=== PATIENT | female | born 1940 | race Caucasian/White ===

== ENCOUNTER 2018-05-12 23:49 | Observation (INO) | payer MEDICARE ==
[2018-05-13 02:56] LABS: Bilirubin Negative (Negative); Blood, Urine Negative (Negative); Clarity CLEAR (Clear); Glucose, Urine (Dipstick) Negative (Negative); Leukocyte Small (Negative); Nitrite Negative (Negative); Protein, Urine (Dipstick) Negative (Neg-Trace); Specific Gravity, Urine 1.025 (1.002-1.036)
[2018-05-13 02:58] LABS: Bacteria/HPF 2+ HPF (None Seen); Pathc Cast-AUWi Flag 0.14 (0-2.49); Squamous Epithelial None Seen HPF (0-3)
[2018-05-13 03:06] LABS: Hyaline Casts/LPF NONE SEEN LPF (0-3 Hyaline); RBC/HPF 0-3 HPF (0-3)
[2018-05-13] MEDS ORDERED: Benzonatate 100 MG CAP PO PRN (07:44)
[2018-05-13] MEDS ORDERED: Bisacodyl 5 MG TAB PO PRN (07:44)
[2018-05-13] MEDS ORDERED: Ondansetron PF 4 MG/2 ML Vial IVP PRN ×2 (07:44)
[2018-05-13] MEDS ORDERED: Diabetic Tussin 200 MG/10 ML UDCUP PO PRN (07:44)
[2018-05-13] MEDS ORDERED: Nitroglycerin 0.4 MG TAB (25 Tab Bottle) SL PRN (07:44)
[2018-05-13] MEDS ORDERED: cloNIDine 0.1 MG TAB PO PRN (07:44)
[2018-05-13] MEDS ORDERED: hydrALAZINE 20 MG/ML VIAL SLOW IVP PRN (07:44)
[2018-05-13] MEDS ORDERED: Senokot S 8.6-50 MG TAB PO PRN (07:44)
[2018-05-13] MEDS ORDERED: Acetaminophen 325 MG TAB PO PRN (07:44)
[2018-05-13] MEDS ORDERED: Enoxaparin Sodium 40 MG/0.4 ML SYRINGE ONE (09:03)
[2018-05-13] MEDS ORDERED: Levofloxacin 500 mg/D5W 100 ml Premix Bag ONE (09:03)
[2018-05-13] MEDS ORDERED: Dextrose 5% in Water 1,000 ML IV PRN (10:52)
[2018-05-13] MEDS ORDERED: Dextrose 50% Abboject 50 ML SYRINGE SLOW IVP PRN (10:52)
[2018-05-13] MEDS ORDERED: HumaLOG 300 UNITS/3 ML VIAL SC PRN ×2 (10:52)
[2018-05-13] MEDS ORDERED: HumaLOG 300 UNITS/3 ML VIAL ONE ×2 (10:55→11:03)
--- NOTE | 2018-05-13 12:28 | MRI ---
MRI BRAIN WITH AND WITHOUT IV CONTRAST: Date: 05/13/18 HISTORY: Stroke-like symptoms. TIA. COMPARISON: None available. FINDINGS: Scattered patchy areas of increased FLAIR and T2-weighted signal intensity are seen throughout the pe riventricular and subcortical white matter, with increased FLAIR and T2-weighted signal intensity see n in the liam bilaterally. Findings are overall nonspecific, but likely reflective of chronic small v essel ischemic changes. There is no evidence of an acute infarction. No abnormal areas are seen after the administration of intravenous contrast. Septum pellucidum and th ird ventricle are in the midline. The ventricular system is normal in size, shape, and position. The right vertebral artery flow-void is dominant compared to the left, but there are otherwise approp riate flow-voids demonstrated at the base of the brain. Minimal mucosal thickening is seen in the ethmoidal air cells bilaterally. The orbits and skull base have a normal MRI appearance. IMPRESSION: 1. No acute intracranial abnormality is demonstrated. 2. Chronic small vessel ischemic changes. POS: SHY
[2018-05-13 12:39] LABS: Cardiac Risk 3.6 (Less than 4.5)
--- NOTE | 2018-05-13 12:42 | HP ---
PRIMARY CARE PHYSICIAN: Henny George. CHIEF COMPLAINT: Imbalance. HISTORY OF PRESENTING ILLNESS: Ms. Govea is a very pleasant 77-year-old female with past medical history of diabetes, hypertension, and dyslipidemia, who presented to the emergency room in [place] with the above-mentioned complaint. History is mainly obtained by the patient herself and electronic medical records have been reviewed. The patient called EMS last night because she was feeling "blah" and noticed that her BP was high at home. She had one episode of vomiting after she took her blood pressure medications yesterday evening. She noticed her blood pressure was 192/82. She was also complaining of worsening vertigo since last night, which she describes as more of imbalance feeling than dizziness. It continuously got worsened with high blood pressure. She got worried, so she presented to the emergency room. She denies any paresthesias. She denies any muscle weakness. No vision changes. No difficulty swallowing or walking. No difficulty with her speech. She has no complaints with loss of hearing or tinnitus or headache. Upon presentation to the emergency room, she was hemodynamically stable with a blood pressure of 137/68, saturating 97% on room air. She underwent general examination including a CT scan of the head, which was unremarkable. Her EKG as well as cardiac enzymes were within normal limit as well. She is now being admitted to rule out posterior cerebral circulation stroke. Noticeably, she was found to have a urinalysis consistent with the UTI. The patient does endorse dysuria and increased urinary frequency. PAST MEDICAL HISTORY: 1. Diabetes mellitus. 2. Dyslipidemia. 3. Hypertension. PAST SURGICAL HISTORY: Left knee replacement. PSYCHIATRIC HISTORY: No anxiety. No depression. SOCIAL HISTORY: She lives at home with family. She is fairly independent with her ADLs and IADLs. No history of drug, tobacco, or alcohol abuse. ALLERGIES: NO KNOWN MEDICATION ALLERGIES. FAMILY HISTORY: No significant family history of any coronary artery disease or stroke. HOME MEDICATIONS: Further need to be confirmed, but she reports that she takes lisinopril, simvastatin, metformin, and Myrbetriq. CODE STATUS: Full code discussed with the patient. REVIEW OF SYSTEMS: A 12-point review of systems is done. It is negative except for those mentioned in the history and physical. LABORATORY DATA: Her CBC is unremarkable. Her serum chemistries show BUN of 27; creatinine at 1.12, baseline being 1.0. Her cardiac enzymes are within normal limits. Urinalysis showed +2 bacteria, small leukocyte esterase and wbc's. CT scan of the brain by my review has no evidence to suggest acute infarction, mass, or hemorrhage. PHYSICAL EXAMINATION: VITAL SIGNS: Upon presentation, blood pressure 137/68, pulse of 65, respirations 18, saturating 97% on room air, temperature 97.5. GENERAL: No acute distress. Awake, alert, and oriented x3. Lying comfortably in bed. Appears her stated age. Family is at bedside. HEENT: Mucous membrane is moist and pink. No oropharyngeal exudate or erythema. Head is normocephalic, atraumatic. Pupils are equal and reactive to light and accommodation. Extraocular movement intact. NECK: Supple without any lymphadenopathy, JVD, or bruit. CHEST: Clear to auscultation bilaterally without any wheezing, rales, or rhonchi. HEART: Rate and rhythm is regular without any murmurs, rubs, or gallops. ABDOMEN: Soft, nontender, nondistended with positive bowel sounds. She has some suprapubic tenderness. EXTREMITIES: Free of any cyanosis, clubbing, or edema. NEUROLOGIC: Nonfocal. SKIN: Free of any rashes or bruises. Feels warm and dry to touch. PSYCHIATRIC: Normal affect. IMPRESSION AND PLAN: 1. Balance problems with imbalance and dizziness. The patient will be admitted under observation status to rule out posterior cerebral circulation stroke. MRI and carotid Doppler ultrasound will be done. She also has evidence to suggest dehydration and urinary tract infection, for which she will be treated with antibiotic and IV fluids. 2. Urinary tract infection. She will be started on levofloxacin and we will send the urine for culture. 3. Acute renal insufficiency. We will start her on gentle IV fluids and monitor her renal function and avoid any nephrotoxic medications. We will hold her metformin for now. 4. Diabetes mellitus. Hold her metformin and start her on insulin sliding scale, and monitor Accu-Cheks a.c. and h.s. 5. Hypertension, currently under better control. We will restart her home medications once confirmed and meanwhile, we will use p.r.n. antihypertensives. 6. Dyslipidemia. Restart home medication and check lipid panel as well. 7. Code status. Full code discussed with the patient in detail. 8. Deep venous thrombosis and gastrointestinal prophylaxis. DISPOSITION: The patient is currently being admitted under observation status to rule out stroke. Further management will depend upon her clinical course. Job ID: [id number]
[2018-05-13] MEDS ORDERED: cloNIDine 0.1 MG TAB ONE (15:47)
--- NOTE | 2018-05-13 17:01 | ULT ---
CAROTID ULTRASOUND: HISTORY: TIAs. TECHNIQUE: Multiple longitudinal and transverse images of the carotid arteries obtained using a Multi-Hertz line ar array transducer. FINDINGS: Real-time, color-flow, and spectral wave-form Doppler analysis demonstrates the right and left common carotid, internal carotid, and external carotid arteries to be patent. Antegrade flow is seen in carmen th vertebral arteries. No significant evidence of carotid disease is seen. IMPRESSION: Normal carotid ultrasound. POS: SHY
[2018-05-13] MEDS ORDERED: hydrALAZINE 20 MG/ML VIAL ONE (17:09)
[2018-05-13] MEDS: Enoxaparin Sodium 40 MG/0.4 ML SYRINGE SC SCH (19:39)
[2018-05-13] MEDS: Sodium Chloride 0.9% 1,000 ML IV SCH (19:39)
[2018-05-13 20:00] VITALS: BMI 31.0
[2018-05-13] MEDS ORDERED: Polyethylene Glycol 3350 17 GM Packet PO PRN (20:51)
[2018-05-13] MEDS ORDERED: Simvastatin 20 MG TAB PO SCH ×2 (21:00→21:45)
[2018-05-13] MEDS: hydrALAZINE 25 MG TAB PO SCH (22:26)
[2018-05-14] MEDS: Sodium Chloride 0.9% 1,000 ML IV SCH (00:37)
[2018-05-14 05:46] LABS: #Basophils 0.1 thou/uL (0.0-0.2); #Eosinphils 0.2 thou/uL (0.0-0.7); #Monocytes 0.6 thou/uL (0.11-0.59); %Basophils 1.1 % (0.0-1.0); %Eosinophils 3.1 % (0.0-10.0); %Lymphocytes 34.3 % (21.0-51.0); %Monocytes 9.5 % (0.0-10.0); Hemoglobin 11.6 g/dL (12.0-16.0); Mean Corpuscular Hemoglobin 31.2 pg (27.0-31.0); Mean Corpuscular Volume 94.5 fL (78.0-98.0); Mean Platelet Volume 10.6 fL (7.4-10.4); Platelet Count 139 thou/uL (130-400); RBC Distribution Width 12.2 % (11.5-14.5); White Blood Cell (WBC) Count 5.8 thou/uL (4.8-10.8)
[2018-05-14 05:59] LABS: Anion Gap 13 mmol/L (10-20); BUN (Urea Nitrogen) 23 mg/dL (9.8-20.1); Calc. Creatinine Clearance 63 mL/min (70-130); Calcium 9.1 mg/dL (7.8-10.44); Carbon Dioxide 23 mmol/L (23-31); Chloride 110 mmol/L (98-107); Estimated GFR-MDRD 55; Glucose 107 mg/dL (83-110); Potassium 3.9 mmol/L (3.5-5.1); Sodium 142 mmol/L (136-145)
[2018-05-14] MEDS ORDERED: Meclizine HCl 25 MG TAB PO SCH (09:00)
[2018-05-14] MEDS ORDERED: Aspirin 81 mg Enteric Coated Tablet PO SCH (09:00)
[2018-05-14] MEDS: hydrALAZINE 25 MG TAB PO SCH (09:37)
[2018-05-14] MEDS: Enoxaparin Sodium 40 MG/0.4 ML SYRINGE SC SCH (09:38)
--- NOTE | 2018-05-14 11:00 | DIS ---
DATE OF ADMISSION: 05/13/2018 DATE OF DISCHARGE: 05/14/2018 DISCHARGE DIAGNOSES: 1. Benign positional vertigo. 2. Hypertension, labile. 3. Diabetes mellitus, type 2, stable. 4. Dyslipidemia. 5. Acute cystitis. CONSULTATIONS: None. PERTINENT LABORATORY AND X-RAY FINDINGS: Total cholesterol 119, triglycerides 167, HDL 33, and LDL 53. CBC showed a hemoglobin of 12, hematocrit 35, and platelet count 139. Urinalysis; positive leukocyte esterase with 11 to 20 wbc's per high-power field and 2+ bacteria. CT of the brain without contrast dated 05/12/2018, showed no acute intracranial process. MRI of the brain dated 05/13/2018, showed no acute intracranial process. Chronic small vessel ischemic changes noted. Carotid Doppler study dated 05/13/2018, showed normal study. HOSPITAL COURSE: The patient was initially admitted after presenting with dizziness and vertigo, undergoing extensive evaluation including neuroimaging showing no acute process. The patient was noted with mild labile blood pressure readings with recommendations for further monitoring on an outpatient basis and potential modification to her outpatient blood pressure regimen. Metabolic screening was essentially unremarkable. However, the patient was noted with mild cystitis and placed on Levaquin. The patient also received IV fluids and meclizine after the clinical diagnosis suggested a benign positional vertigo. Telemetry monitoring showed sinus mechanism without evidence of acute arrhythmia or dysrhythmia, and the patient remained clinically stable during the hospital course. I have examined the patient at the time of discharge and discussed followup instructions. The patient verbalized understanding and in agreement and ready for discharge on 05/14/2018. DISCHARGE MEDICATIONS: 1. Meclizine 25 mg p.o. q.6 hours p.r.n. dizziness. 2. Enteric-coated aspirin 81 mg p.o. daily. 3. Benazepril 40 mg p.o. daily. 4. Calcium carbonate with vitamin D3 one tablet p.o. daily. 5. Hydralazine 50 mg p.o. b.i.d. 6. Metformin 500 mg p.o. at bedtime. 7. Myrbetriq 25 mg p.o. daily. 8. MiraLAX 17 g p.o. daily p.r.n. 9. Zocor 20 mg p.o. at bedtime. 10. Vitamin E 400 units p.o. daily. 11. Levaquin 500 mg p.o. daily x3 days. 12. Levaquin 500 mg p.o. daily x3 days. FOLLOWUP: The patient may follow up with her primary care provider, Dr. Henny George, within 7 days of discharge. CONDITION ON DISCHARGE: Stable. ACTIVITY: Ad radha. DIET: ADA and heart healthy. CODE STATUS: Full. DISPOSITION: To home on 05/14/2018. Job ID: [id number]
[2018-05-14 15:29] VITALS: BP 158/70; TEMP 97.1
[2018-05-14] MEDS ORDERED: metFORMIN 500 MG TAB PO SCH (17:00)
[2018-05-14] MEDS ORDERED: Simvastatin 20 MG TAB PO SCH (21:00)
== END 2018-05-14 15:52 | disposition home or self-care (01) ==
LOC: ERS 23:49 → ERHOLD 05-13 01:13 → 2SW 05-13 18:39
PROVIDERS: ADMIT Hospitalist; ATTEND Hospitalist
DX: H81.10 Benign paroxysmal vertigo, unspecified ear (principal); E11.9 Type 2 diabetes mellitus without complications; E78.5 Hyperlipidemia, unspecified; N30.00 Acute cystitis without hematuria; B96.20 Unspecified Escherichia coli [E. coli] as the cause of diseases classified elsewhere; I10 Essential (primary) hypertension; N17.9 Acute kidney failure, unspecified; Z79.82 Long term (current) use of aspirin; Z79.84 Long term (current) use of oral hypoglycemic drugs; Z79.899 Other long term (current) drug therapy
CPT/HCPCS: 70553; 80048; 80061; 82962 ×2; 85025; 87077; 87086; 87186; 93005; 93880; 96361 ×3; 96365; 96366; 96372 ×2; 96375; 97116; 97139 ×4; 99284; G0378 ×2; 36415; 36416; 81003; 81015; J0360; J1650; J1956

== ENCOUNTER 2020-06-10 08:11 | Outpatient (CLI) | payer MEDICARE | END 2020-06-10 08:12 | disposition home or self-care (01) | LOC: BICMAMMO 08:11 | PROVIDERS: ATTEND Family Medicine | DX: Z13.820 Encounter for screening for osteoporosis (principal); M85.851 Other specified disorders of bone density and structure, right thigh; M85.852 Other specified disorders of bone density and structure, left thigh | CPT/HCPCS: 77080 ==

== ENCOUNTER 2022-03-02 12:17 | Emergency (ER) | payer MEDICARE ==
[2022-03-02 13:34] LABS: Bilirubin Negative (Negative); Blood, Urine Negative (Negative); Clarity Clear (Clear); Glucose, Urine (Dipstick) Normal (Negative); Ketone, Urine Negative (Negative); Leukocyte Negative Leu/uL (Negative); Nitrite Negative (Negative); Protein, Urine (Dipstick) Negative (Neg-Trace); Urobilinogen Normal mg/dL (Less than 2); pH, Urine 7.5 (5.0-9.0)
[2022-03-02 13:59] LABS: #Eosinphils 0.1 thou/uL (0.0-0.7); #Lymphocytes 1.3 thou/uL (1.20-3.40); #Monocytes 0.6 thou/uL (0.11-0.59); #Neutrophils 7.1 thou/uL (1.40-6.50); %Basophils 0.3 % (0.0-1.0); %Eosinophils 0.6 % (0.0-10.0); %Monocytes 6.7 % (0.0-10.0); %Neutrophils 78.4 % (42.0-75.0); Mean Corpuscular HGB CONC 33.1 g/dL (32.0-36.0); Mean Corpuscular Hemoglobin 31.5 pg (27.0-31.0); Mean Corpuscular Volume 95.1 fl (78.0-98.0); Mean Platelet Volume 9.7 fL (7.4-10.4); Platelet Count 180 10x3/uL (130-400); RBC Distribution Width 11.7 % (11.5-14.5); Red Blood Cell (RBC) Count 4.14 mill/uL (4.20-5.40)
[2022-03-02 14:23] LABS: ALT (SGPT) 13 U/L (8-55); AST (SGOT) 20 U/L (5-34); Albumin 3.8 g/dL (3.4-4.8); Alkaline Phosphatase 56 U/L (40-110); Anion Gap 15 mmol/L (10-20); BUN (Urea Nitrogen) 24 mg/dL (9.8-20.1); Bilirubin, Total 0.6 mg/dL (0.2-1.2); Calc. Creatinine Clearance 0 mL/min (70-130); Calcium 9.7 mg/dL (7.8-10.44); Carbon Dioxide 22 mmol/L (23-31); Chloride 107 mmol/L (98-107); Estimated GFR 50; Globulin 2.7 g/dL (2.4-3.5); Glucose 121 mg/dL (83-110); Potassium 3.9 mmol/L (3.5-5.1); Protein, Total 6.5 g/dL (5.8-8.1); Sodium 140 mmol/L (136-145)
== END 2022-03-02 16:43 | disposition home or self-care (01) ==
LOC: ERS 12:17
DX: R26.2 Difficulty in walking, not elsewhere classified (principal); W18.30XA Fall on same level, unspecified, initial encounter; E11.9 Type 2 diabetes mellitus without complications; Z79.84 Long term (current) use of oral hypoglycemic drugs; Z79.899 Other long term (current) drug therapy; Z79.82 Long term (current) use of aspirin
CPT/HCPCS: 36415; 71045; 72125; 72170; 80053; 81003; 85025

== ENCOUNTER 2024-03-29 11:15 | Emergency (ER) | payer MEDICARE ==
[2024-03-29 13:34] LABS: #Basophils 0.05 10x3/uL (0.0-0.2); %Basophils 0.8 % (0.0-1.0); %Eosinophils 1.9 % (0.0-10.0); %Lymphocytes 21.9 % (21.0-51.0); %Monocytes 6.9 % (0.0-10.0); %Neutrophils 68.2 % (42.0-75.0); Hematocrit 36.7 % (36.0-47.0); Hemoglobin 12.4 g/dL (12.0-16.0); Mean Corpuscular HGB CONC 33.8 g/dL (32.0-36.0); Mean Corpuscular Hemoglobin 30.2 pg (27.0-31.0); Mean Corpuscular Volume 89.5 fL (78.0-98.0); Mean Platelet Volume 12.3 fL (7.4-10.4); Platelet Count 214 10x3/uL (130-400); RBC Distribution Width 13.2 % (11.5-14.5)
[2024-03-29 13:52] LABS: ALT (SGPT) 12 U/L (8-55); AST (SGOT) 17 U/L (5-34); Albumin 3.3 g/dL (3.4-4.8); Alkaline Phosphatase 56 U/L (40-110); Anion Gap 10 mmol/L (10-20); BUN (Urea Nitrogen) 14 mg/dL (9.8-20.1); Bilirubin, Total 0.5 mg/dL (0.2-1.2); Calc. Creatinine Clearance 0 mL/min (70-130); Calcium 9.5 mg/dL (7.8-10.44); Carbon Dioxide 23 mmol/L (23-31); Chloride 104 mmol/L (98-107); Estimated GFR 64; Globulin 3.5 g/dL (2.4-3.5); Glucose 101 mg/dL (83-110); Potassium 4.4 mmol/L (3.5-5.1); Protein, Total 6.8 g/dL (5.8-8.1); Sodium 133 mmol/L (136-145)
[2024-03-29] MEDS ORDERED: Glycerin Adult Supp. (12 ct jar) RC SCH (14:15)
[2024-03-29] MEDS ORDERED: Iopamidol-370 76% 500 ML MDV (1 ML CHARGE) ONE (15:32)
== END 2024-03-29 15:25 | disposition home or self-care (01) ==
LOC: ERS 11:15
DX: K59.00 Constipation, unspecified (principal); I10 Essential (primary) hypertension; E11.9 Type 2 diabetes mellitus without complications; E78.5 Hyperlipidemia, unspecified
CPT/HCPCS: 36415; 74177; 80053; 85025; Q9967